=== PATIENT | male | born 1985 | race African-American/Black ===

== ENCOUNTER 2018-01-05 01:30 | Emergency (ER) | payer OTHER ==
[2018-01-05] MEDS ORDERED: DIPH,PERTUSS(ACELL),TET VAC/PF 0.5 ML DISP.SYRIN IM ONE (02:13)
[2018-01-06] MEDS ORDERED: Lidocaine 2% 20ml Vial ONE (21:15)
--- NOTE | 2018-01-08 18:33 | Diagnostic Imaging Report ---
CHELSEA PUTNAM [facility] [address] [facility] [address] [address] Report Submission Date: Jan 07, 2018 5:06:37 PM CDT Patient Study Name: ARIEL RAMIREZ Date: Jan 05, 2018 3:19:15 AM CDT Modality Type: CT\SR Gender: M Description: FACIAL BONES : 85 [facility] Physician: CHELSEA PUTNAM Examination: CT facial History: FALL WITH FACIAL INJURY (Hx) Comparison exams: None provided Technique: Axial imaging with sagittal and coronal reconstruction Findings: Medial and inferior orbital stafford are intact. Anterior and posterior maxillary stafford are also intact. Zygomatic arches without fracture. No nasal bone abnormality. Mandibles including the mandibular condyle are without irregularity. Prior fixation hardware involving the anterior mandible. Large mucous cyst involving the right maxillary sinus associated with air-fluid level. Remaining visualized osseous structures and soft tissue structures are without irregularity. Impression: No acute appearing orbital, nasal, mandibular or maxillary bone fractures. Electronically signed on Jan 07, 2018 5:06:37 PM CDT by: Shashank Mijares Significant right periorbital soft tissue swelling. Addendum electronically signed by Shashank Mijares on January 07, 2018 5:17:11 PM CDT [facility]
--- NOTE | 2018-01-08 18:34 | Diagnostic Imaging Report ---
CHELSEA WATERS [facility] [address] [facility] [address] [place] [address]. [id number] Report Submission Date: Jan 07, 2018 5:16:23 PM CDT Patient Study Name: ARIEL RAMIREZ Date: Jan 05, 2018 3:00:00 AM CDT Modality Type: CT\SR Gender: M Description: HEAD W/O : 85 Institution: [facility] Physician: CHELSEA WATERS Exam dated 05 January 2018 - presented for interpretation on 07 January 2018 Examination: CT head without contrast History: FALL WITH FACIAL INJURY (Hx) Comparison exam: None available Technique: Noncontrast head CT protocol. Findings: Large area of increased attenuation involving the right temporal lobe. Ventricles and sulci are appropriate for patient age. Cerebrocerebellar parenchyma demonstrates normal attenuation. No midline shift. No extra axial fluid collections. Partial visualization of the paranasal sinuses, mastoid air cells, orbits, skull and scalp without gross irregularity. Significant right periorbital soft tissue swelling. Impression: Right temporal lobe subarachnoid hemorrhage. Right periorbital soft tissue swelling. Discussed exam with Dr. Waters at 1712 hours on 07 January 2018 CDT. By report, patient transferred to other medical facility for further evaluation and treatment. Electronically signed on Jan 07, 2018 5:16:23 PM CDT by: Shashank SOMMER
== END 2018-01-05 04:58 | disposition short-term general hospital (02) ==
LOC: ED 01:30
DX: S00.211A Abrasion of right eyelid and periocular area, initial encounter (principal); Z23 Encounter for immunization; W18.39XA Other fall on same level, initial encounter; Y93.89 Activity, other specified; Y92.099 Unspecified place in other non-institutional residence as the place of occurrence of the external cause
CPT/HCPCS: 70450; 70486; 90471; 90715; 99283; S1016

== ENCOUNTER 2018-03-26 19:58 | Emergency (ER) | payer OTHER ==
--- NOTE | 2018-03-26 20:36 | ED Physician Documentation ---
Fall - HISTORIAN Historian: patient, other ([facility] staff) - HPI Stated Complaint: Fall Chief Complaint: Fall Onset: just prior to arrival Where: home Context: slipped, lost balance r: severe Associated Symptoms:: no loss of consciousness Location of Pain/Injury: face Injury to Right Extremity: none Injury to Left Extremity: none Further Comments: yes (32 year old male patient brought in by staff from [facility] after a fall from standing. Patient became agitated and swung at staff, lost balance falling onto wood floor. Face hit wood floor. Staff denies any LOC. Patient complains of lip and right eye pain.) - ROS CONST: no problems NEURO: denies: dizziness EYES/ENT: none CVS/RESP: none GI/: denies: nausea, vomiting - PAST HX Past History: diabetes Type 2, other (Mental retardation, bipolar, hypothyroid, HTN, Explosive disorder, seizures, HLD, obesity, GERD, constipation) Immunizations: UTD Allergies/Adverse Reactions: Allergies Allergy/AdvReac Type Severity Reaction Status Date / Time No Known Allergies Allergy Verified 03/26/18 20:31 Home Medications: Ambulatory Orders Medication Instructions Recorded Acetaminophen [Tylenol] 2 tab PO QID PRN 03/26/18 Aspirin [Azar] 1 tab PO DAILY 03/26/18 Benztropine Mesylate 1 tab PO HS PRN 03/26/18 Codeine Phosphate/Guaifenesin 10 ml PO QID PRN 03/26/18 [Robitussin AC] Divalproex Sodium [Depakote] 3 tab PO DAILY 03/26/18 Insulin Glargine,Hum.rec.anlog 20 units SQ HS 03/26/18 [Lantus] Levothyroxine Sodium [Synthroid] 1 tab PO DAILY 03/26/18 Lisinopril [Prinivil] 1 tab PO DAILY 03/26/18 [place] Carbonate [[place] 1 tab PO BID 03/26/18 Carbonate ER] Metformin HCl [Glucophage] 4 tab PO DAILY 03/26/18 Oxybutynin Chloride [Ditropan] 1 tab PO BID 03/26/18 Quetiapine Fumarate [Seroquel XR] 2 tab PO BID 03/26/18 Sitagliptin Phosphate [Januvia] 1 tab PO DAILY 03/26/18 Trazodone HCl 1 tab PO PRN PRN 03/26/18 - SOCIAL HX Smoking History: non-smoker - FAMILY HX Family History: denies: none - VITAL SIGNS Vital Signs: Vital Signs Temp Pulse Resp BP Pulse Ox 82 16 145/95 98 03/26/18 20:00 03/26/18 20:00 03/26/18 20:00 03/26/18 20:00 - REVIEWED ASSESSMENTS Nursing Assessment Reviewed: Yes Vitals Reviewed: Yes Progress - Progress Progress: [address] Hess - acute bilateral frontal subarachnoid hemorrhage; IV placed and lab obtained. Discussed case with staff. No patient chart available with guardian numbers [phone] Call to [facility] - patient accepted by Dr Apodaca ED Results Lab/Radiology - Radiology Radiology Impressions: CT facial bones HISTORY Fall, injury. TECHNIQUE Images through the facial bones were obtained. Multiplanar reconstructions were performed. FINDINGS Plate and screws stabilize the mandibular symphysis. Fracture is barely perceptible and is an anatomic alignment. There is no acute fracture or abnormal bone production or destruction. The zygomatic arches. Pterygoid plates and orbits are normal. Mucous retention cysts are noted in the maxillary sinuses. Scalp swelling is noted in the right supraorbital region. IMPRESSION ORIF mandibular fracture. No acute osseous abnormality. Electronically signed on Mar 26, 2018 9:03:18 PM CDT by: Joey Hess CT head without contrast HISTORY Fall, head injury. TECHNIQUE Images through the brain were obtained without contrast. FINDINGS There is no mass or midline shift. The ventricles and cortical sulci are enlarged, consistent with atrophy. Trace amount of subarachnoid blood is noted in the right and left frontal lobes. There is no subdural or epidural hemorrhage. Since January 05, 2018, subarachnoid blood in the right temporal region has resolved. Subarachnoid blood in the frontal lobes is new. Scalp swelling is noted in the right frontal and supraorbital region. IMPRESSION New bilateral frontal subarachnoid hemorrhage. Cerebral atrophy. Electronically signed on Mar 26, 2018 8:58:20 PM CDT by: Joey Hess - Orders Orders: ED Orders Category Date Time Status CT BRAIN W/O CONTRAST Stat Exams 03/26/[address] MAXILLOFACIAL W/O DYE Stat Exams 03/26/18 Ordered Fall Physical Exam - Physical Exam General Appearance: mild distress Head: non-tender, no swelling, no obvious injury Neck: non-tender, painless ROM, trachea midline Eye: periorbital edema (significant right periorbital edema) Resp/CVS: chest non-tender, no ecchymosis, breath sounds nml, no resp. distress, heart sounds nml Abdomen: soft, no organomegaly, normal bowel sounds, no abdominal bruit, no distension Neuro: sensation nml, motor nml, mood/affect nml, other (calm and cooperative; answers questions appropriately; MULLER x 4; at his baseline per bedside staff) Skin: color nml, no rash, nml palp., dry, other (upper lip with significant edema; abrasion noted in mucuos membrane of upper lip ) Extremities: atraumatic, pelvis stable, hips non-tender, no pedal edema, nml ROM, nml color/temp - Kale Coma Score Eyes Open: Spontaneous Speech: Oriented Motor: Obeys Commands Discharge Clincal Impression: Subarachnoid hemorrhage, Swollen upper lip, Periorbital edema of right eye Clincal Impression: (Ruled Out): Periorbital edema of left eye Referrals: Juli Rayo MD [Primary Care Provider] - 2 Days Condition: Stable Disposition: [facility]FER [facility] Decision to Admit: NO Decision Time: 21:17
--- NOTE | 2018-03-26 21:02 | Diagnostic Imaging Report ---
YOAV REID (NON CATEGORICAL PRESCHOOL TEACHER) - ER [facility] [address] [facility] [address] [place], [place]. [address] Report Submission Date: Mar 26, 2018 8:58:20 PM CDT Patient Study Name: ARIEL RAMIREZ Date: Mar 26, 2018 8:24:52 PM CDT Modality Type: CT Gender: M Description: CT BRAIN W/O CONTRAST : 85 Institution: [facility] Physician: YOAV REID (MAGDY) - ER CT head without contrast HISTORY Fall, head injury. TECHNIQUE Images through the brain were obtained without contrast. FINDINGS There is no mass or midline shift. The ventricles and cortical sulci are enlarged, consistent with atrophy. Trace amount of subarachnoid blood is noted in the right and left frontal lobes. There is no subdural or epidural hemorrhage. Since January 05, 2018, subarachnoid blood in the right temporal region has resolved. Subarachnoid blood in the frontal lobes is new. Scalp swelling is noted in the right frontal and supraorbital region. IMPRESSION New bilateral frontal subarachnoid hemorrhage. Cerebral atrophy. Electronically signed on Mar 26, 2018 8:58:20 PM CDT by: Joey SOMMER
[2018-03-26 21:21] LABS: BASOPHILS % 0.2 (0.0-1.5); EOSINOPHILS % 2.8 % (0.0-6.8); MEAN CORPUSCULAR VOLUME 94.5 fl (80.0-100.0); NEUTROPHILS # 2.7 # k/uL (1.4-7.7)
--- NOTE | 2018-03-26 21:27 | Diagnostic Imaging Report ---
YOAV REID (SENIOR MECHANICAL PROJECT MANAGER) - ER [facility] [address] [facility] [address] [address] Report Submission Date: Mar 26, 2018 9:03:18 PM CDT Patient Study Name: ARIEL RAMIREZ Date: Mar 26, 2018 8:27:18 PM CDT Modality Type: CT Gender: M Description: CT MAXILLOFACIAL W/O D : 85 Institution: [facility] Physician: YOAV REID (MAGDY) - ER CT facial bones HISTORY Fall, injury. TECHNIQUE Images through the facial bones were obtained. Multiplanar reconstructions were performed. FINDINGS Plate and screws stabilize the mandibular symphysis. Fracture is barely perceptible and is an anatomic alignment. There is no acute fracture or abnormal bone production or destruction. The zygomatic arches. Pterygoid plates and orbits are normal. Mucous retention cysts are noted in the maxillary sinuses. Scalp swelling is noted in the right supraorbital region. IMPRESSION ORIF mandibular fracture. No acute osseous abnormality. Electronically signed on Mar 26, 2018 9:03:18 PM CDT by: Joey SOMMER
[2018-03-26 21:30] VITALS: BP 145/99
[2018-03-26 21:32] LABS: eGFR (Non-African) > 60
[2018-03-27 06:17] LABS: APPEARANCE,URINE CLEAR (CLEAR); COLOR,URINE YELLOW (YELLOW); OCCULT BLOOD,URINE NEGATIVE (NEGATIVE); UROBILINOGEN URINE 0.2 Eu (0.2-1.0)
== END 2018-03-26 21:20 | disposition short-term general hospital (02) ==
LOC: ED 19:58
DX: S06.6X0A Traumatic subarachnoid hemorrhage without loss of consciousness, initial encounter (principal); R60.0 Localized edema; H05.221 Edema of right orbit; W19.XXXA Unspecified fall, initial encounter; Y92.128 Other place in nursing home as the place of occurrence of the external cause; Y93.9 Activity, unspecified; Y99.9 Unspecified external cause status
CPT/HCPCS: 70450; 70486; 80053; 81002; 85025; 99284; S1016